=== PATIENT | male | born 1945 | race Caucasian/White ===

== ENCOUNTER 2016-09-05 07:22 | Emergency (ER) | payer MEDICARE ==
[~2016-09-05] VITALS: Ht 175.3 cm; Wt 99.8 kg
[2016-09-05] MEDS ORDERED: SODIUM CHLORIDE 0.9% 1,000 ML IVB ONE (08:01)
[2016-09-05 08:14] LABS: Basophils # (auto) 0 uL; Basophils % (auto) 0.4 % (0.0-2.0); Eosinophils # (auto) 0.1 uL; Eosinophils % (auto) 1.2 % (0.0-7.0); Hematocrit 37.8 % (41.0-53.0); Hemoglobin 12.4 g/dL (13.5-17.5); Lymphocytes # (auto) 0.6 uL; Lymphocytes % (auto) 12.1 % (10.0-50.0); Mean Corpuscular Hemoglobin 31.9 pg (28.0-32.0); Mean Corpuscular Hgb Conc. 32.8 g/dL (32.0-36.0); Mean Corpuscular Volume 97.2 fL (80.0-100.0); Mean Platelet Volume 8.3 fL (7.4-10.4); Monocytes # (auto) 0.3 uL; Monocytes % (auto) 6.5 % (0.0-12.0); Neutrophils # (auto) 4.1 uL; Neutrophils % (auto) 79.8 % (37.0-80.0); Platelet Count (auto) 161 10^3/uL (140-450); Red Cell Distribution Width 14.8 % (11.6-16.0); White Blood Cell 5.2 10^3/uL (4.4-10.8)
[2016-09-05] MEDS ORDERED: LORazepam 2MG/ML-1ML VIAL IV ONE (08:15)
[2016-09-05 08:33] LABS: Albumin 3.8 g/dL (3.4-5.0); BUN/Creatinine Ratio 21.4; Bilirubin, Total 1.6 mg/dL (0.2-1.0); Calcium 8.4 mg/dL (8.5-10.1); Potassium 3.2 mmol/L (3.5-5.1); Total Protein 6.8 g/dL (6.4-8.2)
[2016-09-05 08:50] LABS: Magnesium 2.5 mg/dL (1.6-2.6)
[2016-09-05 09:09] LABS: INR 1.1 (0.9-1.15); Partial Thromboplastin Time 25.9 sec (22.64-33.71); Prothrombin Time 11.3 sec (9.37-12.3)
[2016-09-05 10:10] LABS: Urine Bilirubin Negative (Negative); Urine Color Yellow (Yellow); Urine Glucose Normal (Normal); Urine Mucus FEW (None Seen); Urine Nitrite Negative (Negative); Urine RBC 26 /hpf (0 - 3); Urine Sperm PRESENT /hpf (None Seen); Urine Urobilinogen Normal (Negative); Urine pH 5.5 (5.0-8.0)
[2016-09-05 10:11] LABS: Urine Blood 1+ /uL (Negative); Urine Ketone 1+ (Negative)
[2016-09-05] MEDS ORDERED: IOHEXOL 350 MG/ML 100ML IJ ONE (10:57)
[2016-09-05] MEDS ORDERED: POTASSIUM CHL 10% (20 MEQ/15ML) ORAL SOLN PO ONE (11:00)
[2016-09-05 11:38] VITALS: BP 126/77
== END 2016-09-05 13:36 | disposition home or self-care (01) ==
LOC: EDBD 07:26 → ER 07:26
DX: R56.9 Unspecified convulsions (principal); E87.6 Hypokalemia; R80.9 Proteinuria, unspecified; R79.1 Abnormal coagulation profile; H91.90 Unspecified hearing loss, unspecified ear
CPT/HCPCS: 36415; 70450; 71020; 71275; 80053; 80320; 81001; 82962; 83735; 84443; 85025; 85379; 85610; 85730; 93005; 94761; 96361; 96374; 99285; G0434; J2060; J7030; Q9967

== ENCOUNTER 2016-09-27 19:31 | Emergency (ER) | payer MEDICARE ==
[~2016-09-27] VITALS: Ht 182.9 cm; Wt 95.3 kg
[2016-09-27] MEDS ORDERED: LEVETIRACETAM INJ 1,000 MG in SODIUM CHL 0.9% 100 ML IV ONE (20:30)
[2016-09-27] MEDS ORDERED: LEVETIRACETAM 500 MG/5ML INJ IV ONE (20:36)
[2016-09-27 20:57] LABS: Basophils # (auto) 0 uL; Basophils % (auto) 0.2 % (0.0-2.0); Eosinophils # (auto) 0 uL; Eosinophils % (auto) 0.4 % (0.0-7.0); Hematocrit 36.6 % (41.0-53.0); Hemoglobin 12.5 g/dL (13.5-17.5); Lymphocytes # (auto) 0.5 uL; Lymphocytes % (auto) 5.7 % (10.0-50.0); Mean Corpuscular Hemoglobin 32.9 pg (28.0-32.0); Mean Corpuscular Hgb Conc. 34.3 g/dL (32.0-36.0); Mean Corpuscular Volume 96.1 fL (80.0-100.0); Monocytes # (auto) 0.3 uL; Monocytes % (auto) 3.9 % (0.0-12.0); Neutrophils # (auto) 7.8 uL; Neutrophils % (auto) 89.8 % (37.0-80.0); Platelet Count (auto) 176 10^3/uL (140-450); Red Cell Distribution Width 15.1 % (11.6-16.0); White Blood Cell 8.7 10^3/uL (4.4-10.8)
[2016-09-27 21:19] LABS: Albumin 3.8 g/dL (3.4-5.0); Alkaline Phosphatase 59 U/L (45-117); Anion Gap 11 (5-15); Aspartate Aminotransferase 17 U/L (15-37); BUN/Creatinine Ratio 11.1; Bilirubin, Total 1.3 mg/dL (0.2-1.0); Blood Urea Nitrogen 8 mg/dL (7-18); Calcium 8.4 mg/dL (8.5-10.1); Carbon Dioxide 24 mmol/L (21-32); Chloride 108 mmol/L (98-107); GFR African American 140 mL/min; GFR Non-African American 115 mL/min; Glucose 120 mg/dL (74-106); Magnesium 2.3 mg/dL (1.6-2.6); Potassium 3.5 mmol/L (3.5-5.1); Sodium 143 mmol/L (136-145); Total Protein 6.8 g/dL (6.4-8.2)
[2016-09-27 23:01] VITALS: BP 138/84
== END 2016-09-28 00:15 | disposition home or self-care (01) ==
LOC: EDBD 19:31 → ER 19:35
DX: G40.909 Epilepsy, unspecified, not intractable, without status epilepticus (principal)
CPT/HCPCS: 36415; 80053; 80320; 83735; 85025; 96365; 99284; G0434; J1953

== ENCOUNTER 2016-11-05 13:22 | Inpatient (IN) | payer MEDICARE ==
[~2016-11-05] VITALS: Ht 185.4 cm; Wt 94.4 kg
[2016-11-05 14:12] LABS: Basophils # (auto) 0 uL; Basophils % (auto) 0.3 % (0.0-2.0); Eosinophils # (auto) 0 uL; Eosinophils % (auto) 0.7 % (0.0-7.0); Hemoglobin 13.4 g/dL (13.5-17.5); Lymphocytes # (auto) 0.9 uL; Lymphocytes % (auto) 14.4 % (10.0-50.0); Mean Corpuscular Hemoglobin 32.3 pg (28.0-32.0); Mean Corpuscular Hgb Conc. 33.4 g/dL (32.0-36.0); Mean Corpuscular Volume 96.9 fL (80.0-100.0); Monocytes # (auto) 0.3 uL; Neutrophils % (auto) 79.6 % (37.0-80.0); Platelet Count (auto) 197 10^3/uL (140-450); Red Cell Distribution Width 15.5 % (11.6-16.0); White Blood Cell 6.2 10^3/uL (4.4-10.8)
[2016-11-05 14:38] LABS: Albumin 3.9 g/dL (3.4-5.0); Alkaline Phosphatase 68 U/L (45-117); Anion Gap 12 (5-15); Aspartate Aminotransferase 24 U/L (15-37); BUN/Creatinine Ratio 14.9; Bilirubin, Total 1.1 mg/dL (0.2-1.0); Blood Urea Nitrogen 13 mg/dL (7-18); Calcium 8.7 mg/dL (8.5-10.1); Carbon Dioxide 21 mmol/L (21-32); Chloride 109 mmol/L (98-107); GFR African American 112 mL/min; GFR Non-African American 92 mL/min; Glucose 101 mg/dL (74-106); Potassium 4.2 mmol/L (3.5-5.1); Sodium 142 mmol/L (136-145); Total Protein 7.2 g/dL (6.4-8.2)
[2016-11-05] MEDS ORDERED: LEVETIRACETAM INJ 1,000 MG in SODIUM CHL 0.9% 100 ML IV ONE (15:45)
[2016-11-05] MEDS ORDERED: SODIUM CHLORIDE 0.9% 1,000 ML IV ONE (15:45)
[2016-11-05] MEDS ORDERED: ACETAMINOPHEN 500 MG TAB PO PRN (16:45)
[2016-11-05] MEDS ORDERED: MORPHINE SULF INJ 2 MG/ML SYRINGE 1ML IV PRN ×2 (16:45)
[2016-11-05] MEDS ORDERED: LORazepam 0.5 MG TAB PO PRN (16:45)
[2016-11-05] MEDS ORDERED: NITROGLYCERIN 0.4 MG SL TAB SL PRN (16:45)
[2016-11-05] MEDS ORDERED: TEMAZEPAM 15 MG CAP PO PRN (16:45)
[2016-11-05] MEDS ORDERED: HYDROcodone-ACET 5/325MG TAB PO PRN (16:45)
[2016-11-05] MEDS ORDERED: LORazepam 2MG/ML-1ML VIAL IV PRN (16:45)
[2016-11-05] MEDS ORDERED: PROCHLORPERAZINE EDISYLATE 5 MG/ML 2ML VIAL IV PRN (16:45)
[2016-11-05] MEDS ORDERED: LACTULOSE 20Gm/30ML SOLN PO PRN (16:45)
[2016-11-05] MEDS ORDERED: ENOXAPARIN SOD 40 MG/0.4 ML SYRINGE SC ONE (17:00)
[2016-11-05] MEDS: SODIUM CHLORIDE 0.9% 1,000 ML IV SCH (17:08)
[2016-11-05 19:14] LABS: Urine Bilirubin Negative (Negative); Urine Blood Negative /uL (Negative); Urine Color Yellow (Yellow); Urine Glucose Normal (Normal); Urine Ketone TRACE (Negative); Urine Mucus FEW (None Seen); Urine Nitrite Negative (Negative); Urine RBC 2 /hpf (0 - 3); Urine Sperm PRESENT /hpf (None Seen); Urine Urobilinogen Normal (Negative)
[2016-11-05 20:25] VITALS: BP 136/83
[2016-11-05 21:41] VITALS: BP 136/83
[2016-11-05] MEDS: LEVETIRACETAM 500 MG TAB PO SCH (22:02)
[2016-11-06 05:00] VITALS: BP 102/56
[2016-11-06] MEDS: SODIUM CHLORIDE 0.9% 1,000 ML IV SCH (05:32)
[2016-11-06] MEDS ORDERED: ENOXAPARIN SOD 40 MG/0.4 ML SYRINGE SC SCH (10:00)
[2016-11-06] MEDS: LEVETIRACETAM 500 MG TAB PO SCH (10:09)
[2016-11-06 12:56] VITALS: BP 108/69
== END 2016-11-06 13:25 | disposition home or self-care (01) | DRG 101 ==
LOC: EDBD 13:22 → ER 13:29 → TELE 13:30 → TELE-CENTR 20:48
PROVIDERS: ADMIT Internal Medicine; ATTEND Internal Medicine
DX: G40.909 Epilepsy, unspecified, not intractable, without status epilepticus (principal); Z91.19 Patient's noncompliance with other medical treatment and regimen
CPT/HCPCS: 36415; 70450; 80053; 80185; 81001; 84484; 85025; 87081; 99291; G0434

== ENCOUNTER 2017-10-21 09:07 | Emergency (ER) | payer MEDICARE, OTHER ==
[~2017-10-21] VITALS: Ht 185.4 cm; Wt 86.6 kg
[2017-10-21 09:57] LABS: Basophils # (auto) 0.1 uL; Basophils % (auto) 0.7 % (0.0-2.0); Eosinophils # (auto) 0 uL; Eosinophils % (auto) 0.1 % (0.0-7.0); Hematocrit 42.6 % (41.0-53.0); Hemoglobin 14.5 g/dL (13.5-17.5); Lymphocytes # (auto) 0.8 uL; Lymphocytes % (auto) 10.4 % (10.0-50.0); Mean Corpuscular Hemoglobin 32.2 pg (28.0-32.0); Mean Corpuscular Hgb Conc. 34.1 g/dL (32.0-36.0); Mean Corpuscular Volume 94.5 fL (80.0-100.0); Monocytes # (auto) 0.5 uL; Neutrophils # (auto) 6.2 uL; Neutrophils % (auto) 81.8 % (37.0-80.0); Nucleated Red Blood Cells % 0.1 %; Platelet Count (auto) 167 10^3/uL (140-450); Red Blood Cells 4.51 10^6/uL (4.5-5.90); Red Cell Distribution Width 16.1 % (11.8-14.3); White Blood Cell 7.6 10^3/uL (4.4-10.8)
[2017-10-21 10:14] LABS: Alanine Aminotransferase 20 U/L (16-61); Albumin 4.1 g/dL (3.4-5.0); Anion Gap 8 (5-15); Aspartate Aminotransferase 17 U/L (15-37); BUN/Creatinine Ratio 24.4; Blood Urea Nitrogen 19 mg/dL (7-18); Calcium 8.6 mg/dL (8.5-10.1); Carbon Dioxide 22 mmol/L (21-32); Chloride 112 mmol/L (98-107); GFR African American 127 mL/min; GFR Non-African American 105 mL/min; Glucose 104 mg/dL (74-106); Magnesium 2.2 mg/dL (1.6-2.6); Potassium 3.4 mmol/L (3.5-5.1); Sodium 142 mmol/L (136-145)
[2017-10-21 10:30] LABS: Alkaline Phosphatase 56 U/L (45-117); Bilirubin, Total 2.5 mg/dL (0.2-1.0); Blood Alcohol < 3.0 mg/dL (0-5); Total Protein 7.7 g/dL (6.4-8.2)
[2017-10-21 12:05] LABS: Alcohol, Urine < 3.0 mg/dL (0-5); Amphetamine Screen, Urine NEGATIVE (NEGATIVE); Barbiturate Scree,Urine NEGATIVE (NEGATIVE); Benzodiazephine Screen, Urine NEGATIVE (NEGATIVE); Cannabinoid Screen, Urine POSITIVE (NEGATIVE); Cocaine Screen, Urine NEGATIVE (NEGATIVE); Opiate Scree,Urine NEGATIVE (NEGATIVE); Phencyclidine Screen, Urine NEGATIVE (NEGATIVE)
[2017-10-21 12:07] LABS: Urine Bacteria NONE SEEN /hpf (None Seen); Urine Blood Negative /uL (Negative); Urine Mucus FEW (None Seen); Urine Specific Gravity 1.032 (1.001-1.035); Urine WBC 3 /hpf (0 - 3)
[2017-10-21 13:32] VITALS: BP 139/89
[2017-10-21] MEDS ORDERED: SODIUM CHLORIDE 0.9% 1,000 ML IV ONE (14:36)
[2017-10-21] MEDS ORDERED: cefTRIAXone W LIDOCAINE 1 GM IM IM ONE (15:00)
[2017-10-21] MEDS ORDERED: cefTRIAXone SOD 1,000 MG VL IM ONE (15:00)
[2017-10-21] MEDS ORDERED: LIDOCAINE 1% HCL (LOCAL ANESTH.) INJ 20ML MDV IJ ONE (15:00)
== END 2017-10-21 15:40 | disposition home or self-care (01) ==
LOC: ER 09:07
DX: F03.90 Unspecified dementia, unspecified severity, without behavioral disturbance, psychotic disturbance, mood disturbance, and anxiety (principal); F12.10 Cannabis abuse, uncomplicated
CPT/HCPCS: 36415; 70450; 76705; 80053; 80307; 80320; 81001; 82962; 83735; 84484; 85025; 93005; 96372; 99285; J0696

== ENCOUNTER 2017-10-24 11:38 | Inpatient (IN) | payer MEDICARE, OTHER ==
[~2017-10-24] VITALS: Ht 180.3 cm; Wt 85.8 kg
[2017-10-24 12:23] LABS: Basophils # (auto) 0 uL; Basophils % (auto) 0.1 % (0.0-2.0); Eosinophils # (auto) 0 uL; Eosinophils % (auto) 0.1 % (0.0-7.0); Hematocrit 41.8 % (41.0-53.0); Hemoglobin 13.8 g/dL (13.5-17.5); Lymphocytes # (auto) 0.4 uL; Lymphocytes % (auto) 4.2 % (10.0-50.0); Mean Corpuscular Hemoglobin 31.9 pg (28.0-32.0); Mean Corpuscular Hgb Conc. 33.1 g/dL (32.0-36.0); Mean Corpuscular Volume 96.2 fL (80.0-100.0); Monocytes # (auto) 0.6 uL; Monocytes % (auto) 6.8 % (0.0-12.0); Neutrophils # (auto) 7.7 uL; Neutrophils % (auto) 88.8 % (37.0-80.0); Platelet Count (auto) 180 10^3/uL (140-450); Red Blood Cells 4.34 10^6/uL (4.5-5.90); Red Cell Distribution Width 16.3 % (11.8-14.3); White Blood Cell 8.7 10^3/uL (4.4-10.8)
[2017-10-24 12:31] LABS: Alanine Aminotransferase 37 U/L (16-61); Albumin 4.3 g/dL (3.4-5.0); Alkaline Phosphatase 62 U/L (45-117); Anion Gap 18 (5-15); Aspartate Aminotransferase 71 U/L (15-37); BUN/Creatinine Ratio 26.4; Bilirubin, Total 1.8 mg/dL (0.2-1.0); Blood Alcohol < 3.0 mg/dL (0-5); Blood Urea Nitrogen 34 mg/dL (7-18); Calcium 7.9 mg/dL (8.5-10.1); Carbon Dioxide 13 mmol/L (21-32); Chloride 104 mmol/L (98-107); GFR African American 71 mL/min; GFR Non-African American 59 mL/min; Glucose 73 mg/dL (74-106); Potassium 4.1 mmol/L (3.5-5.1); Sodium 135 mmol/L (136-145); Total Protein 7.7 g/dL (6.4-8.2)
[2017-10-24] MEDS ORDERED: HALOPERIDOL 1 MG TAB PO ONE (13:15)
[2017-10-24 14:30] LABS: Urine Bacteria NONE SEEN /hpf (None Seen); Urine Blood Negative /uL (Negative); Urine Hyaline Cast FEW /lpf (0 - 2); Urine Specific Gravity 1.019 (1.001-1.035); Urine WBC 1 /hpf (0 - 3)
[2017-10-24] MEDS ORDERED: DOCUSATE SOD 100 MG CAP PO PRN (14:30)
[2017-10-24] MEDS ORDERED: ACETAMINOPHEN 325 MG TAB PO PRN (14:30)
[2017-10-24] MEDS ORDERED: HYDROcodone-ACET 5/325MG TAB PO PRN (14:30)
[2017-10-24] MEDS ORDERED: ONDANSETRON HCL 4 MG/2 ML VIAL IV PRN (14:30)
[2017-10-24] MEDS ORDERED: NITROGLYCERIN 0.4 MG SL TAB SL PRN (14:30)
[2017-10-24] MEDS ORDERED: LORazepam 2MG/ML-1ML VIAL IV PRN (14:30)
[2017-10-24] MEDS ORDERED: cefTRIAXone 1GM/10ml IVPUSH 10 ML IV ONE (14:30)
[2017-10-24] MEDS ORDERED: MORPHINE SULFATE 4 MG/ML SYR/VIAL IV PRN ×2 (14:30)
[2017-10-24 15:02] LABS: Alcohol, Urine < 3.0 mg/dL (0-5); Amphetamine Screen, Urine NEGATIVE (NEGATIVE); Barbiturate Scree,Urine NEGATIVE (NEGATIVE); Benzodiazephine Screen, Urine NEGATIVE (NEGATIVE); Cannabinoid Screen, Urine POSITIVE (NEGATIVE); Cocaine Screen, Urine NEGATIVE (NEGATIVE); Opiate Scree,Urine NEGATIVE (NEGATIVE); Phencyclidine Screen, Urine NEGATIVE (NEGATIVE)
[2017-10-24] MEDS ORDERED: LORazepam 2MG/ML-1ML VIAL ONE (15:58)
[2017-10-24] MEDS ORDERED: HALOPERIDOL LACTATE 5 MG/ML INJ VIAL ONE (16:01)
[2017-10-24] MEDS ORDERED: diphenhdrAMINE HCL 50 MG/1 ML VL ONE (16:02)
[2017-10-24] MEDS ORDERED: LORazepam 2MG/ML-1ML VIAL IM ONE (16:30)
[2017-10-24] MEDS ORDERED: diphenhdrAMINE HCL 50 MG/1 ML VL IM ONE (16:30)
[2017-10-24] MEDS ORDERED: HALOPERIDOL LACTATE 5 MG/ML INJ VIAL IM ONE (16:30)
[2017-10-24] MEDS: FAMOTIDINE 20 MG TAB PO SCH (22:00)
[2017-10-24] MEDS: ASCORBIC ACID 500 MG TAB PO SCH (22:00)
[2017-10-24] MEDS: SODIUM CHLOR 0.9% PF (SALINE LOCK) 10ML VIAL IV SCH (22:15)
[2017-10-25 04:30] VITALS: BP 115/58
[2017-10-25 05:00] VITALS: BP 115/58
[2017-10-25 06:02] LABS: Basophils # (auto) 0 uL; Basophils % (auto) 0.4 % (0.0-2.0); Eosinophils # (auto) 0 uL; Eosinophils % (auto) 0.5 % (0.0-7.0); Hematocrit 39.1 % (41.0-53.0); Hemoglobin 13.3 g/dL (13.5-17.5); Lymphocytes # (auto) 0.5 uL; Lymphocytes % (auto) 8.2 % (10.0-50.0); Mean Corpuscular Hemoglobin 32.5 pg (28.0-32.0); Mean Corpuscular Hgb Conc. 34.1 g/dL (32.0-36.0); Mean Corpuscular Volume 95.2 fL (80.0-100.0); Monocytes # (auto) 0.6 uL; Monocytes % (auto) 8.7 % (0.0-12.0); Neutrophils # (auto) 5.3 uL; Neutrophils % (auto) 82.2 % (37.0-80.0); Platelet Count (auto) 145 10^3/uL (140-450); Red Cell Distribution Width 16.3 % (11.8-14.3); White Blood Cell 6.5 10^3/uL (4.4-10.8)
[2017-10-25 06:21] LABS: Albumin 3.8 g/dL (3.4-5.0); BUN/Creatinine Ratio 19.6; Bilirubin, Total 1.2 mg/dL (0.2-1.0); Calcium 7.8 mg/dL (8.5-10.1); Potassium 3.8 mmol/L (3.5-5.1); Total Protein 7.1 g/dL (6.4-8.2)
[2017-10-25] MEDS: SODIUM CHLOR 0.9% PF (SALINE LOCK) 10ML VIAL IV SCH ×3 (06:40→22:11)
[2017-10-25 08:54] VITALS: BP 136/74
[2017-10-25] MEDS: cefTRIAXone 1GM/10ml IVPUSH 10 ML IV SCH (09:08)
[2017-10-25] MEDS: ASCORBIC ACID 500 MG TAB PO SCH ×2 (09:36→22:11)
[2017-10-25] MEDS: FAMOTIDINE 20 MG TAB PO SCH ×2 (09:36→22:11)
[2017-10-25] MEDS: MULTIPLE VITAMIN TAB PO SCH (09:36)
[2017-10-25 13:26] VITALS: BP 117/79
[2017-10-25] MEDS ORDERED: SODIUM CHLORIDE 0.9% 1,000 ML IV ONE ×2 (13:45)
[2017-10-25 16:59] VITALS: BP 123/79
[2017-10-25 21:13] VITALS: BP 111/69
[2017-10-26 05:44] VITALS: BP 124/76
[2017-10-26] MEDS: SODIUM CHLOR 0.9% PF (SALINE LOCK) 10ML VIAL IV SCH ×3 (06:00→22:00)
[2017-10-26 09:00] VITALS: BP 102/49
[2017-10-26] MEDS: cefTRIAXone 1GM/10ml IVPUSH 10 ML IV SCH (10:55)
[2017-10-26] MEDS: MULTIPLE VITAMIN TAB PO SCH (10:55)
[2017-10-26] MEDS: FAMOTIDINE 20 MG TAB PO SCH ×2 (10:55→21:46)
[2017-10-26] MEDS: ASCORBIC ACID 500 MG TAB PO SCH ×2 (10:56→21:46)
[2017-10-26 13:00] VITALS: BP 115/57
[2017-10-26 17:32] VITALS: BP 120/65
[2017-10-26 22:00] VITALS: BP 101/79
[2017-10-27 04:47] VITALS: BP 115/70
[2017-10-27] MEDS: SODIUM CHLOR 0.9% PF (SALINE LOCK) 10ML VIAL IV SCH ×2 (06:00→14:00)
[2017-10-27 08:00] VITALS: BP 123/76
[2017-10-27] MEDS: FAMOTIDINE 20 MG TAB PO SCH (10:07)
[2017-10-27] MEDS: ASCORBIC ACID 500 MG TAB PO SCH (10:08)
[2017-10-27] MEDS: MULTIPLE VITAMIN TAB PO SCH (10:08)
[2017-10-27] MEDS: cefTRIAXone 1GM/10ml IVPUSH 10 ML IV SCH (10:09)
[2017-10-27 11:51] VITALS: BP 124/78
== END 2017-10-27 15:25 | DRG 640 ==
LOC: EDBD 11:38 → ER 11:38 → TELE 11:39 → TELE-EAST 10-25 04:28
PROVIDERS: ADMIT Internal Medicine; ATTEND Family Medicine
DX: E86.0 Dehydration (principal); G92 Toxic encephalopathy; N18.3 Chronic kidney disease, stage 3 (moderate); F03.90 Unspecified dementia, unspecified severity, without behavioral disturbance, psychotic disturbance, mood disturbance, and anxiety; E87.1 Hypo-osmolality and hyponatremia; F12.10 Cannabis abuse, uncomplicated; F25.9 Schizoaffective disorder, unspecified; G40.909 Epilepsy, unspecified, not intractable, without status epilepticus; J32.3 Chronic sphenoidal sinusitis
CPT/HCPCS: 36415; 70450; 71045; 73130; 76705; 80053; 80307; 80320; 81001; 82140; 82962; 83735; 84484; 85025; 87040; 87086; 93005; 93306; 93886; 96372; J0696

== ENCOUNTER 2018-01-21 16:22 | Inpatient (IN) | payer MEDICARE ==
[~2018-01-21] VITALS: Ht 180.3 cm; Wt 93.8 kg
[2018-01-21] MEDS ORDERED: SODIUM CHLORIDE 0.9% 1,000 ML IVB ONE (16:36)
[2018-01-21] MEDS ORDERED: LORazepam 2MG/ML-1ML VIAL ONE (17:53)
[2018-01-21 18:15] LABS: Basophils # (auto) 0 uL; Basophils % (auto) 0.2 % (0.0-2.0); Eosinophils # (auto) 0 uL; Eosinophils % (auto) 0.2 % (0.0-7.0); Hemoglobin 14.2 g/dL (13.5-17.5); Lymphocytes # (auto) 0.5 uL; Lymphocytes % (auto) 5.6 % (10.0-50.0); Mean Corpuscular Hemoglobin 33.8 pg (28.0-32.0); Mean Corpuscular Hgb Conc. 35.5 g/dL (32.0-36.0); Mean Corpuscular Volume 95.2 fL (80.0-100.0); Monocytes # (auto) 0.5 uL; Monocytes % (auto) 5.5 % (0.0-12.0); Neutrophils % (auto) 88.5 % (37.0-80.0); Platelet Count (auto) 139 10^3/uL (140-450); Red Cell Distribution Width 15.7 % (11.8-14.3)
[2018-01-21] MEDS ORDERED: LORazepam 2MG/ML-1ML VIAL IV ONE (18:15)
[2018-01-21 18:22] LABS: INR 1.02 (0.9-1.15); Partial Thromboplastin Time 26.1 sec (23.78-33.04); Prothrombin Time 10.9 sec (9.27-12.13)
[2018-01-21 18:30] LABS: Alanine Aminotransferase 18 U/L (16-61); Alkaline Phosphatase 55 U/L (45-117); Anion Gap 10 (5-15); Aspartate Aminotransferase 12 U/L (15-37); BUN/Creatinine Ratio 17.1; Bilirubin, Total 1.6 mg/dL (0.2-1.0); Blood Alcohol < 3.0 mg/dL (0-5); Blood Urea Nitrogen 12 mg/dL (7-18); Calcium 8.3 mg/dL (8.5-10.1); Carbon Dioxide 24 mmol/L (21-32); Chloride 104 mmol/L (98-107); GFR African American 143 mL/min; GFR Non-African American 118 mL/min; Glucose 106 mg/dL (74-106); Magnesium 2.7 mg/dL (1.6-2.6); Potassium 3.8 mmol/L (3.5-5.1); Sodium 138 mmol/L (136-145); Total Protein 7.2 g/dL (6.4-8.2)
[2018-01-21] MEDS ORDERED: ONDANSETRON HCL 4 MG/2 ML VIAL IV PRN (21:30)
[2018-01-21] MEDS ORDERED: ACETAMINOPHEN 500 MG TAB PO PRN (21:30)
[2018-01-21] MEDS ORDERED: LORazepam 2MG/ML-1ML VIAL IV PRN (21:30)
[2018-01-21] MEDS ORDERED: HYDROcodone-ACET 5/325MG TAB PO PRN (21:30)
[2018-01-21] MEDS ORDERED: ONDANSETRON HCL 4 MG/2 ML VIAL ONE (21:37)
[2018-01-21 22:20] VITALS: BP 130/80
[2018-01-21 22:30] VITALS: BP 130/80
[2018-01-22] MEDS ORDERED: LEVETIRACETAM INJ 1,000 MG in D5W 5% 100 ML IV ONE ×2
[2018-01-22 05:00] VITALS: BP 115/73
[2018-01-22 06:21] LABS: Basophils # (auto) 0 uL; Basophils % (auto) 0.4 % (0.0-2.0); Eosinophils # (auto) 0 uL; Eosinophils % (auto) 0.3 % (0.0-7.0); Hemoglobin 12.9 g/dL (13.5-17.5); Lymphocytes # (auto) 0.8 uL; Lymphocytes % (auto) 12.7 % (10.0-50.0); Mean Corpuscular Hemoglobin 33.9 pg (28.0-32.0); Mean Corpuscular Hgb Conc. 35.8 g/dL (32.0-36.0); Mean Corpuscular Volume 94.7 fL (80.0-100.0); Monocytes # (auto) 0.5 uL; Monocytes % (auto) 7.1 % (0.0-12.0); Neutrophils # (auto) 5.1 uL; Neutrophils % (auto) 79.5 % (37.0-80.0); Platelet Count (auto) 136 10^3/uL (140-450); Red Cell Distribution Width 15.8 % (11.8-14.3); White Blood Cell 6.4 10^3/uL (4.4-10.8)
[2018-01-22 06:24] LABS: BUN/Creatinine Ratio 12.1; Calcium 8.1 mg/dL (8.5-10.1); Potassium 3.8 mmol/L (3.5-5.1)
[2018-01-22 09:05] VITALS: BP 117/75
[2018-01-22 12:34] VITALS: BP 94/59
[2018-01-22 16:32] VITALS: BP 100/64
[2018-01-22 22:00] VITALS: BP 104/53
[2018-01-23 05:00] VITALS: BP 111/65
[2018-01-23 09:21] VITALS: BP 114/65
[2018-01-23 10:58] LABS: Urine Bacteria NONE SEEN /hpf (None Seen); Urine Blood Negative /uL (Negative); Urine Mucus FEW (None Seen); Urine Specific Gravity 1.015 (1.001-1.035); Urine WBC <1 /hpf (0 - 3)
[2018-01-23 11:03] LABS: Alcohol, Urine < 3.0 mg/dL (0-5); Amphetamine Screen, Urine NEGATIVE (NEGATIVE); Barbiturate Scree,Urine NEGATIVE (NEGATIVE); Benzodiazephine Screen, Urine NEGATIVE (NEGATIVE); Cannabinoid Screen, Urine NEGATIVE (NEGATIVE); Cocaine Screen, Urine NEGATIVE (NEGATIVE); Opiate Scree,Urine NEGATIVE (NEGATIVE); Phencyclidine Screen, Urine NEGATIVE (NEGATIVE)
[2018-01-23 14:05] VITALS: BP 107/63
[2018-01-23 17:17] VITALS: BP 118/72
[2018-01-23 22:00] VITALS: BP 131/77
[2018-01-23] MEDS ORDERED: PHENYTOIN SODIUM 100 MG CAP PO SCH (22:00)
[2018-01-24 05:00] VITALS: BP 129/73
[2018-01-24 09:00] VITALS: BP 126/71
[2018-01-24 13:00] VITALS: BP 117/82
[2018-01-24 13:47] VITALS: BP 126/71
== END 2018-01-24 14:40 | disposition home or self-care (01) | DRG 101 ==
LOC: ER 16:22 → EDBD 16:22 → OVERFLOW 16:23 → EAST 22:19
PROVIDERS: ADMIT Nurse Practitioner Family; ATTEND Family Medicine
DX: G40.89 Other seizures (principal); E66.9 Obesity, unspecified; F12.10 Cannabis abuse, uncomplicated; F17.200 Nicotine dependence, unspecified, uncomplicated; S00.03XA Contusion of scalp, initial encounter; W18.39XA Other fall on same level, initial encounter; Y93.89 Activity, other specified; Y92.89 Other specified places as the place of occurrence of the external cause; Y99.8 Other external cause status; S00.11XA Contusion of right eyelid and periocular area, initial encounter; F32.9 Major depressive disorder, single episode, unspecified; F41.9 Anxiety disorder, unspecified; Z68.28 Body mass index [BMI] 28.0-28.9, adult
CPT/HCPCS: 36415; 70450; 70551; 71045; 80048; 80053; 80307; 80320; 81001; 83735; 85025; 85610; 85730; 93005; 93886; 96361; 96374; J2405; J7060